=== PATIENT | female | born 1980 | race African-American/Black ===

== ENCOUNTER 2016-06-03 20:23 | Emergency (ER) | payer OTHER ==
[2016-06-03 20:45] VITALS: BP 138/77; PULSE 83; TEMP 97.7; BMI 43.4
[2016-06-03 21:01] LABS: BASOPHIL 0.6 % (0-2.0); EOSINOPHIL 2.4 % (0-4.5); MCHC 33.5 g/dl (32.0-36.0); MEAN CELL VOLUME 86.4 fl (80-96); MEAN PLT VOLUME 6.8 fl (7.5-11.1); NEUTROPHILS 60.4 % (42.8-82.8); PLATELET COUNT 353 K/MM3 (134-434); RDW 13.2 % (11.6-15.6); WHITE BLOOD COUNT 9.7 K/mm3 (4.0-10.0)
[2016-06-03 21:27] LABS: ALBUMIN 3.7 g/dl (3.4-5.0); ANION GAP 11 (8-16); CALCIUM 8.7 mg/dL (8.5-10.1); CO2 23 mmol/L (21-32); GLUCOSE,RANDOM 88 mg/dL (74-106)
--- NOTE | 2016-06-03 21:28 | PDOC ---
History of Present Illness - General History Source: Patient Exam Limitations: No Limitations - History of Present Illness Initial Comments: 06/03/16 21:50 The patient is a 35 year old female(A1), with no significant past medical history, who presents to the emergency department complaining of left arm pain for 2 days. The patient reports her left arm pain began in her bicep yesterday. She states she did not think much of it at the time, because she gets these pains in her left arm from time to time. This morning when she woke up the pain began to radiate into her left shoulder and left chest. She reports associated paresthesias and numbness in her left arm. This afternoon, the patient reports she became increasingly anxious, dizzy, lightheaded, and sweaty secondary to arm pain. The patient reports her last physical exam was in 12/2015, and states all lab tests were normal. The patient denies any palpitations or shortness of breath. The patient denies any fever, chills, cough, or headache. The patient denies any nausea, vomiting, diarrhea, or constipation. The patient denies any dysuria, frequency, urgency, or hematuria. Allergies: Latex, NKDA Past Surgical History: None reported. Social History: Current everyday smoker(3 cigarettes per day). Denies alcohol or drug use. <Sonu Toure - Last Filed: 06/03/16 21:50> - General History Source: Patient <Alexi Ring - Last Filed: 06/03/16 21:59> - General Chief Complaint: Psychiatric Stated Complaint: CHEST PAIN Time Seen by Provider: 06/03/16 20:24 Past History <Sonu Toure - Last Filed: 06/03/16 21:50> - Past Medical History Anemia: No Asthma: No Cancer: No Cardiac Disorders: No CVA: No COPD: No CHF: No DVT: No Dementia: No Diabetes: No Dialysis: No GI Disorders: No Disorders: No HTN: No Hypercholesterolemia: No HIV: No Kidney Stones: No Liver Disease: No Psychiatric Problems: No Suicide Attempt (Hx): No Seizures: No Thyroid Disease: No Lung CA: No - Surgical History Abdominal Surgery: No Appendectomy: No Cardiac Surgery: No Cholecystectomy: No Gastric Stapling: No GI Surgery: No Lung Surgery: No Neurologic Surgery: No Orthopedic Surgery: Yes - Reproductive History (#): 4 Para: 2 Spontaneous : 1 - Immunization History Immunization Up to Date: Yes - Psycho/Social/Smoking Cessation Hx Anxiety: No Suicidal Ideation: No Smoking Status: No Smoking History: Current every day smoker Have you smoked in the past 12 months: Yes Number of Cigarettes Smoked Daily: 3 If you are a former smoker, when did you quit?: 3 days Information on smoking cessation initiated: No 'Breaking Loose' booklet given: 05/10/13 Hx Alcohol Use: No Drug/Substance Use Hx: No Substance Use Type: None Hx Substance Use Treatment: No <Alexi Ring - Last Filed: 06/03/16 21:59> - Past Medical History Allergies/Adverse Reactions: Allergies Allergy/AdvReac Type Severity Reaction Status Date / Time latex Allergy Itching Verified 06/03/16 20:41 No Known Drug Allergies Allergy Verified 06/03/16 20:41 Home Medications: Ambulatory Orders Ibuprofen 800 mg PO TID #30 tablet 06/03/16 Lysine 1,000 mg PO TID 06/03/16 Methocarbamol [Robaxin -] 500 mg PO TID #30 tablet 06/03/16 Review of Systems - Review of Systems Able to Perform ROS?: Yes Comments:: 06/03/16 21:50 CONSTITUTIONAL: Absent: fever, no chills, no fatigue EYES: Absent: visual changes ENT: Absent: ear pain, no sore throat CARDIOVASCULAR: Present: +left sided chest pain, +diaphoresis Absent: chest pain, no palpitations RESPIRATORY: Absent: cough, no SOB GI: Absent: abdominal pain, no nausea, no vomiting, no constipation, no diarrhea GENITOURINARY: Absent: dysuria, no frequency, no hematuria MUSCULOSKELETAL: Present: +left arm pain, +left shoulder pain Absent: back pain, no arthralgia SKIN: Absent: rash NEUROLOGIC: Present: +paresthesias, +dizziness Absent: headache, unsteady gait, seizure, mental status changes, bladder or bowel incontinence PSYCHIATRIC: Absent: anxiety, depression, suicidal or homicidal ideation, hallucinations. <Sonu Toure - Last Filed: 06/03/16 21:50> *Physical Exam - Vital Signs Last Vital Signs Temp Pulse Resp BP Pulse Ox 97.7 F 83 14 138/77 100 06/03/16 20:42 06/03/16 20:42 06/03/16 20:42 06/03/16 20:42 06/03/16 20:42 - Physical Exam Comments: 06/03/16 21:50 GENERAL: Well developed, well nourished. Awake and alert. No acute distress. HEENT: Normocephalic, atraumatic. PERRLA, EOMI. No conjunctival pallor. Sclera are non- icteric. Moist mucous membranes. Oropharynx is clear. Positive Lhermitte's sign NECK: Supple. Full ROM. No JVD. Carotid pulses 2+ and symmetric, without bruits. No thyromegaly. No lymphadenopathy. CARDIOVASCULAR: Regular rate and rhythm. No murmurs, rubs, or gallops. Distal pulses are 2+ and symmetric. PULMONARY: No evidence of respiratory distress. Lungs clear to auscultation bilaterally. No wheezing, rales or rhonchi. ABDOMINAL: Soft. Non-tender. Non-distended. No rebound or guarding. No organomegaly. Normoactive bowel sounds. MUSCULOSKELETAL Normal range of motion at all joints. No bony deformities or tenderness. No CVA tenderness. EXTREMITIES: No cyanosis. No clubbing. No edema. No calf tenderness. SKIN: Warm and dry. Normal capillary refill. No rashes. No jaundice. NEUROLOGICAL: Alert, awake, appropriate. Cranial nerves 2-12 intact. No deficits to light touch and temperature in face, upper extremities and lower extremities. No motor deficits in the in face, upper extremities and lower extremities. Normoreflexic in the upper and lower extremities. Normal speech. Toes are down- going bilaterally. Gait is normal without ataxia. PSYCHIATRIC: Cooperative. Good eye contact. Appropriate mood and affect. <Sonu Toure - Last Filed: 06/03/16 21:50> - Vital Signs Last Vital Signs Temp Pulse Resp BP Pulse Ox 97.7 F 83 14 138/77 100 06/03/16 20:42 06/03/16 20:42 06/03/16 20:42 06/03/16 20:42 06/03/16 20:42 <Alexi Ring - Last Filed: 06/03/16 21:59> Heart Score/ECG Review - ECG Impressions Comment:: 06/03/16 21:51 Vent. Rate: 93 bpm IMPRESSION: Normal sinus rhythm <Sonu Toure - Last Filed: 06/03/16 21:50> ED Treatment Course - LABORATORY CBC & Chemistry Diagram: 06/03/16 20:45 06/03/16 20:45 - ADDITIONAL ORDERS Additional order review: Laboratory Results 06/03/16 20:45 Sodium 142 Potassium 3.5 Chloride 108 H Carbon Dioxide 23 Anion Gap 11 BUN 9 D Creatinine 0.8 D Creat Clearance w eGFR > 60 Random Glucose 88 Calcium 8.7 Total Bilirubin 0.2 AST 15 ALT 26 D Alkaline Phosphatase 105 Creatine Kinase 130 Troponin I < 0.02 Total Protein 7.7 Albumin 3.7 06/03/16 20:45 RBC 4.28 MCV 86.4 MCHC 33.5 RDW 13.2 MPV 6.8 L Neutrophils % 60.4 Lymphocytes % 29.5 Monocytes % 7.1 Eosinophils % 2.4 Basophils % 0.6 <Sonu Toure - Last Filed: 06/03/16 21:50> - LABORATORY CBC & Chemistry Diagram: 06/03/16 20:45 06/03/16 20:45 - ADDITIONAL ORDERS Additional order review: 06/03/16 20:45 RBC 4.28 MCV 86.4 MCHC 33.5 RDW 13.2 MPV 6.8 L Neutrophils % 60.4 Lymphocytes % 29.5 Monocytes % 7.1 Eosinophils % 2.4 Basophils % 0.6 <Alexi Ring - Last Filed: 06/03/16 21:59> Medical Decision Making - Medical Decision Making 06/03/16 21:44 Dr. Ring: The scribe's documentation has been prepared under my direction and personally reviewed by me in its entirery. I confirm that the note above accurately reflects all work, treatment, procedures, and medical decision making performed by me. 06/03/16 21:44 Labs and EKG are all normal. Pt symptoms have improved. Pt to be discharged. Rx Motrin/ Robaxin <Alexi Ring - Last Filed: 06/03/16 21:59> *DC/Admit/Observation/Transfer - Attestations Scribe Attestion: 06/03/16 21:51 Documentation prepared by Sonu Toure, acting as expert medical writer for Alexi Ring DO. <Sonu Toure - Last Filed: 06/03/16 21:50> - Discharge Dispostion Admit: No <Alexi Ring - Last Filed: 06/03/16 21:59> Diagnosis at time of Disposition: Neuropathy Chest pain Qualifiers: Chest pain type: unspecified Qualified Code(s): R07.9 - Chest pain, unspecified - Discharge Dispostion Disposition: HOME Condition at time of disposition: Stable - Prescriptions Prescriptions: Ibuprofen 800 mg PO TID #30 tablet Methocarbamol [Robaxin -] 500 mg PO TID #30 tablet - Referrals Referrals: Andreina Moss MD [Staff Physician] - David Brokoe MD [Staff Physician] - - Patient Instructions Printed Discharge Instructions: DI for Chest Pain - Post Discharge Activity Work/School Note: Back to Work
[2016-06-03 21:33] LABS: ALK PHOS 105 U/L (45-117); BILIRUBIN,TOTAL 0.2 mg/dL (0.2-1.0); CREATININE 0.8 mg/dL (0.55-1.02); SGOT/AST 15 U/L (15-37); SGPT/ALT 26 U/L (12-78); TOT PROT 7.7 g/dl (6.4-8.2); TROPONIN I < 0.02 ng/ml (0.00-0.05)
[2016-06-03] MEDS ORDERED: IBUPROFEN 400 MG TABLET (FP) PO ONE ×2 (21:41→21:47)
[2016-06-03] MEDS ORDERED: METHOCARBAMOL 500 MG TABLET PO ONE (21:41)
[2016-06-03] MEDS ORDERED: METHOCARBAMOL 500 MG TABLET ONE (21:47)
[2016-06-03 22:03] LABS: URINE APPEARANCE CLEAR; URINE BILIRUBIN NEGATIVE (NEGATIVE); URINE COLOR RED; URINE GLUCOSE (UA) NEGATIVE (NEGATIVE); URINE KETONE NEGATIVE (NEGATIVE); URINE NITRITE NEGATIVE (NEGATIVE); URINE UROBILINOGEN NEGATIVE E.U./dl (0.2-1.0)
[2016-06-03 22:05] LABS: URINE BLOOD 3+ (NEGATIVE); URINE LEUK ESTERASE TRACE (NEGATIVE); URINE PROTEIN 1+ (NEGATIVE)
[2016-06-03 22:06] LABS: URINE MUCUS FEW; URINE RBC 1189 /hpf (0-3); URINE WBC 167 /hpf (3-5)
--- NOTE | 2016-06-04 16:38 | EKG ---
Test Reason : Blood Pressure : / mmHG Vent. Rate : 093 BPM Atrial Rate : 093 BPM P-R Int : 178 ms QRS Dur : 082 ms QT Int : 374 ms P-R-T Axes : 034 088 047 degrees QTc Int : 465 ms NORMAL SINUS RHYTHM NORMAL ECG WHEN COMPARED WITH ECG OF 19-JAN-2016 11:41, NO SIGNIFICANT CHANGE WAS FOUND Confirmed by MD JANE, GEORGE ([id number]) on 06/04/2016 4:37:43 PM Referred By: Confirmed By:GEORGE LARA MD
== END 2016-06-03 22:27 | disposition home or self-care (01) ==
LOC: JER 20:23
DX: G62.9 Polyneuropathy, unspecified (principal); R07.9 Chest pain, unspecified; F17.210 Nicotine dependence, cigarettes, uncomplicated
CPT/HCPCS: 36415; 80053; 81003; 81015; 82550; 84484; 84703; 85025; 93005; 93010; 99283-25

== ENCOUNTER 2017-11-04 01:11 | Emergency (ER) | payer OTHER ==
[2017-11-04 01:42] VITALS: BP 113/89; PULSE 103; TEMP 98.7; BMI 37.5
--- NOTE | 2017-11-04 01:43 | PDOC ---
History of Present Illness - General Chief Complaint: Pain, Acute Stated Complaint: ABD PAIN Time Seen by Provider: 11/04/17 01:28 - History of Present Illness Initial Comments: 11/04/17 01:41 37 yo F with no significant pmh who p/w abdominal pain. Patient with sharp, unremitting, RUQ and epigastric pain this evening following PO ingestion of "hotdog" at around 1000PM (11/03/17). Pain worse with supine positioning. Also reports one episode of non bilious, non bloody emesis this evening.Normal bowel habits, with absent BPR. Patient denies F,C, CP, SOB, urinary complaints, hematuria, diarrhea, constipation, lightheadedness, weakness, sensory changes. PMHx: as noted above. Denies h/o abdominal surgery, endoscopy, or colonoscopy. ROS: as noted SHx: Denies Etoh, IVDA, tobacco. Allergies: NKDA Past History - Past Medical History Allergies/Adverse Reactions: Allergies Allergy/AdvReac Type Severity Reaction Status Date / Time latex Allergy Itching Verified 11/04/17 01:30 No Known Drug Allergies Allergy Verified 11/04/17 01:30 Penicillins Allergy yeast Verified 11/04/17 01:30 infection Home Medications: Ambulatory Orders NK [No Known Home Medication] 10/13/17 Anemia: No Asthma: No Cancer: No Cardiac Disorders: No CVA: No COPD: No CHF: No DVT: No Dementia: No Diabetes: No Dialysis: No GI Disorders: No Disorders: No HTN: No Hypercholesterolemia: No Kidney Stones: No Liver Disease: No Psychiatric Problems: No Seizures: No Thyroid Disease: No Lung CA: No - Surgical History Abdominal Surgery: No Appendectomy: No Cardiac Surgery: No Cholecystectomy: No Gastric Stapling: No GI Surgery: No Lung Surgery: No Neurologic Surgery: No Orthopedic Surgery: Yes - Reproductive History (#): 4 Para: 2 Spontaneous : 1 - Immunization History Immunization Up to Date: Yes - Suicide/Smoking/Psychosocial Hx Smoking Status: No Smoking History: Never smoked Have you smoked in the past 12 months: No Number of Cigarettes Smoked Daily: 3 If you are a former smoker, when did you quit?: 3 days Information on smoking cessation initiated: No 'Breaking Loose' booklet given: 05/10/13 Hx Alcohol Use: No Drug/Substance Use Hx: No Substance Use Type: None Hx Substance Use Treatment: No Review of Systems - Review of Systems Comments:: 11/04/17 01:41 GENERAL/CONSTITUTIONAL: No fever or chills. No weakness. HEAD, EYES, EARS, NOSE AND THROAT: No change in vision. No ear pain or discharge. No sore throat. CARDIOVASCULAR: No chest pain or shortness of breath RESPIRATORY: No cough, wheezing, or hemoptysis. GASTROINTESTINAL: + Abdominal pain, nausea, vomiting. No diarrhea or constipation. GENITOURINARY: No dysuria, frequency, or change in urination. MUSCULOSKELETAL: No joint or muscle swelling or pain. No neck or back pain. SKIN: No rash NEUROLOGIC: No headache, vertigo, loss of consciousness, or change in strength/ sensation. ENDOCRINE: No increased thirst. No abnormal weight change HEMATOLOGIC/LYMPHATIC: No anemia, easy bleeding, or history of blood clots. ALLERGIC/IMMUNOLOGIC: No hives or skin allergy. *Physical Exam - Vital Signs Last Vital Signs Temp Pulse Resp BP Pulse Ox 98.7 F 103 H 20 113/89 100 11/04/17 01:30 11/04/17 01:30 11/04/17 01:30 11/04/17 01:30 11/04/17 01:30 - Physical Exam Comments: 11/04/17 01:42 GENERAL: Awake, alert, and fully oriented, in no acute distress HEAD: No signs of trauma, normocephalic, atraumatic EYES: PERRLA, EOMI, sclera anicteric, conjunctiva clear ENT: Hearing grossly normal, nares patent, oropharynx clear without exudates. Moist mucosa NECK: Normal ROM, supple, no lymphadenopathy, JVD, or masses LUNGS: No distress, speaks full sentences, clear to auscultation bilaterally HEART: Regular rate and rhythm, normal S1 and S2, no murmurs, rubs or gallops, peripheral pulses normal and equal bilaterally. ABDOMEN: + Epigastric, periumbilical, and RUQ ttp. + Portruberant abdomen. Soft , NDS, nontender, normoactive bowel sounds. No guarding, no rebound. No masses. Neg CVA ttp. EXTREMITIES : Normal inspection, Normal range of motion, no edema. No clubbing or cyanosis. SKIN: Warm, Dry, normal turgor, no rashes or lesions noted ED Treatment Course - LABORATORY CBC & Chemistry Diagram: 11/04/17 02:15 11/04/17 02:15 Medical Decision Making - Medical Decision Making 11/04/17 03:04 37 yo F with no significant pmh who p/w abdominal pain. VSS, AF. + RUQ and periumbilical ttp. R/o appendicitis vs. biliary pathology. Differential includes dyspepsia 2/2 GERD/esophagitis, pancreatitis,colitis, diverticulitis, ovarian torsion, ovarian cystic rupture. ED Course: Maloox, Carafate, Famotidine, Zofran CBC,CMP, UA, Lipase, Serum preg CT AP 11/04/17 03:12 WBC: 13.4 11/04/17 03:17 CMP: Unremarkable 11/04/17 03:39 Patient abdominal pain resolved. Abdomen is non tender 11/04/17 03:41 Patient to f/u with her PMD Dr. Perera today at 1:00 PM 11/04/17 03:46 Stable for d/c with return precautions. *DC/Admit/Observation/Transfer Diagnosis at time of Disposition: Epigastric abdominal pain - Discharge Dispostion Disposition: HOME Condition at time of disposition: Stable Decision to Admit order: No - Referrals Referrals: Hema Perera MD [Primary Care Provider] - Reyes Bowen MD [Staff Physician] - - Patient Instructions Printed Discharge Instructions: DI for Abdominal Pain-Adult Additional Instructions: Please return to the emergency department with any new or worsening symptoms or concerns. Please follow up with your primary care physician at 1:00 PM as discussed. Please follow up with your domestic maid within one week - Post Discharge Activity - Attestations Physician Attestion: 11/04/17 01:42 I attest to the information provided in this note.
[2017-11-04] MEDS ORDERED: FAMOTIDINE 20 MG/50 ML IVPB 20 MG/50 ML MG IVPB ONE ×2 (02:03→02:05)
[2017-11-04] MEDS ORDERED: MAG HYDROX/AL HYDROX/SIMETH 30 ML UNIT-DOSE CUP PO ONE ×2 (02:03→03:43)
[2017-11-04] MEDS ORDERED: ONDANSETRON 4 MG/2 ML VIAL IVPUSH ONE (02:03)
[2017-11-04] MEDS ORDERED: SUCRALFATE 1 GM TABLET (FP) PO ONE ×2 (02:03→03:43)
[2017-11-04] MEDS ORDERED: ONDANSETRON 4 MG/2 ML VIAL ONE (02:04)
[2017-11-04] MEDS ORDERED: MAG HYDROX/AL HYDROX/SIMETH 30 ML UNIT-DOSE CUP ONE ×2 (02:04→04:15)
[2017-11-04] MEDS ORDERED: SUCRALFATE 1 GM TABLET (FP) ONE ×2 (02:04→04:15)
[2017-11-04 02:42] LABS: BASO % 0.4 % (0-2.0); EOS % 0.7 % (0-4.5); HEMATOCRIT 37.4 % (32.4-45.2); HEMOGLOBIN 12.5 GM/dL (10.7-15.3); LYMPH % 13.7 % (8-40); MCH 28.9 pg (25.7-33.7); MCHC 33.4 g/dl (32.0-36.0); MEAN CELL VOLUME 86.5 fl (80-96); MEAN PLT VOLUME 7.9 fl (7.5-11.1); MONO % 6.4 % (3.8-10.2); NEUT % 78.8 % (42.8-82.8); PLATELET COUNT 378 K/MM3 (134-434); RBC 4.33 M/mm3 (3.60-5.2); RDW 13.2 % (11.6-15.6); WHITE BLOOD COUNT 13.4 K/mm3 (4.0-10.0)
[2017-11-04 03:02] LABS: ALBUMIN 3.7 g/dl (3.4-5.0); ANION GAP 9 (8-16); BLOOD UREA NITROGEN 9 mg/dL (7-18); CALCIUM 9.2 mg/dL (8.5-10.1); CHLORIDE 106 mmol/L (98-107); CO2 24 mmol/L (21-32); CREATININE 0.8 mg/dL (0.55-1.02); GLUCOSE,RANDOM 107 mg/dL (74-106); LIPASE 76 U/L (73-393); POTASSIUM 3.6 mmol/L (3.5-5.1); SGOT/AST 18 U/L (15-37); SGPT/ALT 29 U/L (12-78); SODIUM 139 mmol/L (136-145)
[2017-11-04 03:04] LABS: ALK PHOS 99 U/L (45-117); BILIRUBIN,TOTAL 0.3 mg/dL (0.2-1.0)
--- NOTE | 2017-11-04 03:40 | PDOC ---
Attending Attestation - HPI HPI: 11/04/17 03:42 The patient is a 37 year old female, with no significant past medical history, who presents to the emergency department with, abdominal pain. The patient reports his symptoms onset after eating a hotdog 2 hours prior to her arrival. She describes her pain as sharp and localized to her right upper quadrant and epigastric region. Her pain is worsened when laying supine. She reports associated nausea with one episode of nonbloody, nonbilious emesis. She has an appointment with her PCP, Dr. Perera, today. She refuses any CT scans. She denies recent fevers, chills, headache or dizziness. She denies recent diarrhea or constipation. She denies recent dysuria, frequency, urgency or hematuria. She denies recent chest pain or shortness of breath. Allergies: latex, penicillins Past surgical history: lipoma excision from the neck Social history: Former smoker, quit one year ago. No reported alcohol or drug use. Primary Care Physician: Dr. Perera <Sayra Porter - Last Filed: 11/04/17 03:42> - Resident Resident Name: Manjinder Lozoya - ED Attending Attestation I have performed the following: I have examined & evaluated the patient, The case was reviewed & discussed with the resident, I agree w/resident's findings & plan, Exceptions are as noted - Physicial Exam PE: 11/07/17 19:40 *Physical Exam General Appearance: Yes: Appropriately Dressed. No: Apparent Distress, Intoxicated HEENT: positive: EOMI, TANIKA, Normal ENT Inspection, Normal Voice, TMs Normal, Pharynx Normal. negative: Pale Conjunctivae, Photophobia, Scleral Icterus (R), Scleral Icterus (L) Neck: positive: Trachea midline, Normal Thyroid, Supple. negative: Tender, Rigid, Carotid bruit, Stridor, Lymphadenopathy (R), Lymphadenopathy (L), Thyromegaly Respiratory/Chest: positive: Lungs Clear, Normal Breath Sounds. negative: Chest Tender, Respiratory Distress, Accessory Muscle Use, Labored Respiration, RES, Crackles, Rales, Rhonchi, Stridor, Wheezing, Dullness Cardiovascular: positive: Regular Rhythm, Regular Rate, S1, S2. negative: Edema , JVD, Murmur, Bradycardia, Tachycardia Vascular Pulses: Dorsalis-Pedis (R): 2+, Doralis-Pedis (L): 2+ Gastrointestinal/Abdominal: positive: Normal Bowel Sounds, Flat, Soft. negative : Tender, Organomegaly, Pulsatile Mass, Increased Bowel Sounds, Decreased BS, Distended, Guarding, Rebound, Hernia, Hepatomegaly, Spleenomegaly Lymphatic: negative: Adenopathy, Tenderness Musculoskeletal: positive: Normal Inspection. negative: CVA Tenderness, Decreased Range of Motion Extremity: positive: Normal Capillary Refill, Normal Inspection, Normal Range of Motion, Pelvis Stable. negative: Tender, Pedal Edema, Swelling, Erythema Integumentary: positive: Normal Color, Dry, Warm. 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 negative: EOM Palsy, Facial Droop, Sensory Deficit - Medical Decision Making 11/07/17 19:40 patient was treated and released <Alexi Ring - Last Filed: 11/07/17 19:40>
[2017-11-04] MEDS ORDERED: RANITIDINE HCL 150 MG TABLET (FP) PO ONE (03:43)
[2017-11-04] MEDS ORDERED: RANITIDINE HCL 150 MG TABLET (FP) ONE (04:15)
== END 2017-11-04 04:22 | disposition home or self-care (01) ==
LOC: JER 01:11
PROC: 3E033GC Introduction of Other Therapeutic Substance into Peripheral Vein, Percutaneous Approach (ICD-10-PCS; principal; 2017-11-04)
DX: R10.13 Epigastric pain (principal)
CPT/HCPCS: 36415; 80053; 83690; 84703; 85025; 96365; 96375; 99283-25

== ENCOUNTER 2018-08-11 09:53 | Emergency (ER) | payer OTHER ==
[2018-08-11 10:03] VITALS: TEMP 98.1; BMI 44.4
--- NOTE | 2018-08-11 11:41 | PDOC ---
History of Present Illness - General Chief Complaint: Pain Stated Complaint: ABD. PAIN Time Seen by Provider: 08/11/18 10:58 History Source: Patient - History of Present Illness Timing/Duration: other (yesterday) Associated Symptoms: reports: nausea/vomiting, shortness of breath. denies: diaphoresis, fever/chills, headaches Past History - Past Medical History Allergies/Adverse Reactions: Allergies Allergy/AdvReac Type Severity Reaction Status Date / Time latex Allergy Itching Verified 08/11/18 10:00 No Known Drug Allergies Allergy Verified 08/11/18 10:00 Penicillins Allergy yeast Verified 08/11/18 10:00 infection Home Medications: Ambulatory Orders clonazePAM [Klonopin -] 0.5 mg PO BID #6 tablet MDD 2 doses 08/11/18 Anemia: No Asthma: No Cancer: No Cardiac Disorders: No CVA: No COPD: No CHF: No DVT: No Dementia: No Diabetes: No Dialysis: No GI Disorders: No Disorders: No HTN: No Hypercholesterolemia: No Kidney Stones: No Liver Disease: No Psychiatric Problems: No Seizures: No Thyroid Disease: No Lung CA: No - Surgical History Abdominal Surgery: No Appendectomy: No Cardiac Surgery: No Cholecystectomy: No Gastric Stapling: No GI Surgery: No Lung Surgery: No Neurologic Surgery: No Orthopedic Surgery: Yes - Reproductive History (#): 4 Para: 2 Spontaneous : 1 - Immunization History Immunization Up to Date: Yes - Suicide/Smoking/Psychosocial Hx Smoking Status: No Smoking History: Former smoker Have you smoked in the past 12 months: No Number of Cigarettes Smoked Daily: 3 If you are a former smoker, when did you quit?: 2017 Information on smoking cessation initiated: No 'Breaking Loose' booklet given: 05/10/13 Hx Alcohol Use: No Drug/Substance Use Hx: No Substance Use Type: None Hx Substance Use Treatment: No Review of Systems - Review of Systems Constitutional: No: Chills, Fever, Weakness Respiratory: Yes: Shortness of Breath. No: Cough Cardiac (ROS): Yes: Palpitations. No: Chest Pain, Lightheadedness, Syncope ABD/GI: Yes: Diarrhea, Nausea, Vomiting, Abdominal cramping : No: Dysuria *Physical Exam - Vital Signs Last Vital Signs Temp Pulse Resp BP Pulse Ox 98.1 F 87 16 146/88 100 08/11/18 10:00 08/11/18 10:00 08/11/18 10:00 08/11/18 10:00 08/11/18 10:00 - Physical Exam Comments: 08/11/18 12:29 appears anxious General Appearance: Yes: Appropriately Dressed HEENT: positive: Normal Voice Neck: positive: Supple Respiratory/Chest: positive: Lungs Clear, Normal Breath Sounds. negative: Respiratory Distress Cardiovascular: positive: Regular Rate, S1, S2 Gastrointestinal/Abdominal: positive: Normal Bowel Sounds, Soft. negative: Tender, Distended, Guarding, Rebound Musculoskeletal: negative: CVA Tenderness Integumentary: positive: Dry, Warm Neurologic: positive: Fully Oriented, Alert, Normal Mood/Affect ED Treatment Course - LABORATORY CBC & Chemistry Diagram: 08/11/18 11:22 08/11/18 11:22 Medical Decision Making - Medical Decision Making 08/11/18 11:10 37 yo F, morbidly obesed, here w/ a constellation of symptoms. Patient states since yesterday she has had palpitations with shortness of breath, diffuse abd cramping and several episodes of nausea, vomiting and diarrhea. No BRBPR, f/c or CP. No sick contacts/recent travel/abx use. No RF for DVT/PE. States she also feels very anxious. Patient states she's had similar episodes of palpitations and sobin the past, last time was a year ago and was seen here at [facility] and diagnosed w/ possible anxiety. Labs including TSH was normal at the time. 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 Patient crying throughout evaluation. Denies SI or HI See exam ? Anxiety Neg w/u for same at [facility] 10/26 -EKG -Declines anxiolytic in ED -reassess N/V/D w/ epigastric pain Possible gastroenteritis vs gastritis vs biliary, less likely pancreatitis, appy or renal colic Exam unremarkable -labs -supportive tx -reassess 08/11/18 13:11 Labs unremarkable. On reassessment, patient reports feeling significantly better with Tylenol and Zantac. Abdomen remains benign on repeat exam. Able to jairo po. Will DC with a small dose of anxiolytic and encourage PMD follow-up for further evaluation of possible anxiety. *DC/Admit/Observation/Transfer Diagnosis at time of Disposition: Anxiety, Palpitations Nausea & vomiting Qualifiers: Vomiting type: unspecified Vomiting Intractability: non-intractable Qualified Code(s): R11.2 - Nausea with vomiting, unspecified - Discharge Dispostion Disposition: HOME Condition at time of disposition: Improved - Prescriptions Prescriptions: clonazePAM [Klonopin -] 0.5 mg PO BID #6 tablet MDD 2 doses - Referrals Referrals: Hema Perera MD [Primary Care Provider] - - Patient Instructions Additional Instructions: Your labs were normal today. We have sent a small dose of Klonopin to your pharmacy. Please take as directed only for anxiety. Please follow-up with your PMD for possible therapy referral - Post Discharge Activity Forms/Work/School Notes: Back to Work
[2018-08-11] MEDS ORDERED: IBUPROFEN 400 MG TABLET (FP) PO ONE (11:45)
[2018-08-11] MEDS ORDERED: ACETAMINOPHEN 325 MG TABLET (FP) ONE (11:56)
[2018-08-11 11:58] LABS: BASO % 0.5 % (0-2.0); EOS % 0.5 % (0-4.5); HEMATOCRIT 37.8 % (32.4-45.2); HEMOGLOBIN 12.8 GM/dL (10.7-15.3); LYMPH % 14.6 % (8-40); MCH 29.1 pg (25.7-33.7); MCHC 33.8 g/dl (32.0-36.0); MEAN CELL VOLUME 86.1 fl (80-96); MEAN PLT VOLUME 7.4 fl (7.5-11.1); MONO % 5.6 % (3.8-10.2); NEUT % 78.8 % (42.8-82.8); PLATELET COUNT 386 K/MM3 (134-434); RBC 4.39 M/mm3 (3.60-5.2); RDW 13.4 % (11.6-15.6); WHITE BLOOD COUNT 9.5 K/mm3 (4.0-10.0)
[2018-08-11] MEDS ORDERED: RANITIDINE HCL 150 MG TABLET (FP) PO ONE (12:01)
[2018-08-11 12:06] LABS: EPI CELLS 0.5 /HPF (0-5/HPF); URINE APPEARANCE CLEAR; URINE BACTERIA 80.9 /hpf (NEGATIVE); URINE BILIRUBIN NEGATIVE (NEGATIVE); URINE CASTS 1 /lpf (0-8); URINE COLOR YELLOW; URINE GLUCOSE (UA) NEGATIVE (NEGATIVE); URINE KETONE NEGATIVE (NEGATIVE); URINE LEUK ESTERASE NEGATIVE (NEGATIVE); URINE NITRITE NEGATIVE (NEGATIVE); URINE PROTEIN NEGATIVE (NEGATIVE); URINE RBC 2 /hpf (0-4); URINE UROBILINOGEN 0.2 mg/dL (0.2-1.0); URINE WBC 0 /hpf (0-5)
[2018-08-11] MEDS ORDERED: ACETAMINOPHEN 325 MG TABLET (FP) PO ONE (12:15)
[2018-08-11 12:17] LABS: HCG,QUALITATIVE URINE NEGATIVE
[2018-08-11 12:24] LABS: ALBUMIN 3.9 g/dl (3.4-5.0); ALK PHOS 105 U/L (45-117); ANION GAP 6 MMOL/L (8-16); BILIRUBIN,TOTAL 0.4 mg/dL (0.2-1); BLOOD UREA NITROGEN 5 mg/dL (7-18); CALCIUM 9.6 mg/dL (8.5-10.1); CHLORIDE 106 mmol/L (98-107); CO2 25 mmol/L (21-32); CREATININE 0.7 mg/dL (0.55-1.3); GLUCOSE,RANDOM 84 mg/dL (74-106); POTASSIUM 3.6 mmol/L (3.5-5.1); SGOT/AST 15 U/L (15-37); SGPT/ALT 23 U/L (13-61); SODIUM 137 mmol/L (136-145); TOT PROT 8.4 g/dl (6.4-8.2)
[2018-08-11] MEDS ORDERED: RANITIDINE HCL 150 MG TABLET (FP) ONE (12:32)
[2018-08-11 13:13] VITALS: BP 144/86; PULSE 74
--- NOTE | 2018-08-12 09:43 | EKG ---
Test Reason : Blood Pressure : / mmHG Vent. Rate : 078 BPM Atrial Rate : 078 BPM P-R Int : 170 ms QRS Dur : 080 ms QT Int : 398 ms P-R-T Axes : 000 146 150 degrees QTc Int : 453 ms NORMAL SINUS RHYTHM RIGHT AXIS DEVIATION NONSPECIFIC T WAVE ABNORMALITY ABNORMAL ECG WHEN COMPARED WITH ECG OF 13-OCT-2017 12:04, NONSPECIFIC T WAVE ABNORMALITY, WORSE IN ANTEROLATERAL LEADS Confirmed by MUNIRA HARRIS, GHAZAL ([id number]) on 08/12/2018 9:43:20 AM Referred By: Confirmed By:GHAZAL LOMBARDO MD
== END 2018-08-11 13:13 | disposition home or self-care (01) ==
LOC: JER 09:53
DX: F41.9 Anxiety disorder, unspecified (principal); R00.2 Palpitations; Z87.891 Personal history of nicotine dependence
CPT/HCPCS: 36415; 80053; 81003; 84703; 85025; 93005; 93010; 99283-25

== ENCOUNTER 2022-09-23 09:25 | Emergency (ER) | payer OTHER ==
[2022-09-23 09:41] VITALS: BP 129/77; PULSE 78; RESP 17; TEMP 98.5; BMI 47.2
== END 2022-09-23 11:44 | disposition home or self-care (01) ==
LOC: JERFT 09:25
DX: M79.661 Pain in right lower leg (principal); M79.604 Pain in right leg
CPT/HCPCS: 93971-TC; 99284-25

== ENCOUNTER 2024-02-06 09:19 | Emergency (ER) | payer OTHER ==
[2024-02-06 09:29] VITALS: BP 138/97; PULSE 80; TEMP 98.3; BMI 44.4
[2024-02-06] MEDS ORDERED: LIDOCAINE 2.5%/PRILOCAINE 2.5% (5 Gram/TUBE) TP ONE ×2 (10:03→10:11)
[2024-02-06] MEDS ORDERED: ACETAMINOPHEN 325 MG TABLET (FP) PO ONE (10:03)
[2024-02-06 10:05] VITALS: RESP 18
[2024-02-06] MEDS ORDERED: ACETAMINOPHEN 325 MG TABLET (FP) ONE (10:11)
== END 2024-02-06 10:25 | disposition home or self-care (01) ==
LOC: JERFT 09:19
DX: L03.012 Cellulitis of left finger (principal)
CPT/HCPCS: 99283-25

== ENCOUNTER 2024-10-05 19:11 | Emergency (ER) | payer OTHER ==
[2024-10-05 19:25] VITALS: TEMP 98; BMI 46.0
[2024-10-05 19:44] VITALS: RESP 16
[2024-10-05 20:08] VITALS: BP 158/96; PULSE 89
[2024-10-05 20:54] LABS: ABSOLUTE IMMATURE GRANULOCYTES 0.03 x10^3/uL (0.0-0.031); BASOPHILS # 0.05 x10^3/uL (0.01-0.08); EOSINOPHIL % 0.9 % (0.7-5.8); EOSINOPHILS # 0.08 x10^3/uL (0.04-0.36); HEMATOCRIT 37.7 % (34.1-44.9); HEMOGLOBIN 12.1 g/dL (11.2-15.7); MCHC 32.1 g/dl (32.2-35.5); MEAN CELL VOLUME 87.1 fl (79.4-94.8); MEAN PLT VOLUME 8.9 fl (9.4-12.3); MONOCYTE # 0.58 x10^3/uL (0.24-0.86); MONOCYTE % 6.2 % (4.7-12.5); PLATELET COUNT 357 x10^3/uL (182-369); RDW 12.9 % (12.2-17.1)
[2024-10-05 21:19] LABS: POTASSIUM 3.5 mmol/L (3.5-5.1)
[2024-10-05 21:21] LABS: ALBUMIN 3.6 g/dl (3.4-5.0); CALCIUM 9.8 mg/dL (8.5-10.1); MAGNESIUM 1.9 mg/dL (1.8-2.4)
[2024-10-05 21:22] LABS: BLOOD UREA NITROGEN 6.6 mg/dL (7-18)
[2024-10-05 21:24] LABS: CREATININE 0.8 mg/dL (0.55-1.3)
[2024-10-05 21:26] LABS: BILIRUBIN,TOTAL 0.3 mg/dL (0.2-1); TOT PROT 7.6 g/dl (6.4-8.2)
[2024-10-05 22:16] LABS: HCV DIAGNOSTIC IN-HOUSE W/RFLX NON-REACTIVE (NONREACTIVE)
[2024-10-05 23:01] LABS: HIV INTERPRETATION NEGATIVE (NEGATIVE)
== END 2024-10-05 23:28 | disposition home or self-care (01) ==
LOC: JER 19:11
DX: I10 Essential (primary) hypertension (principal)
CPT/HCPCS: 36415; 71045-TC-FY; 80053; 83735; 84484; 85025; 86803; 87389; 93005; 93010; 99285-25